=== PATIENT | female | born 1975 | race Caucasian/White ===

== ENCOUNTER 2020-03-04 14:39 | Outpatient (CLI) | payer OTHER, SELFPAY ==
--- NOTE | ~2020-03-04 | MM_ITS ---
EXAMINATION: MM scrn сергей implant BI w jaswinder HISTORY: Screening mammogram TECHNIQUE: Craniocaudal and mediolateral oblique 3-D tomosynthesis images with implant displacement a nd synthetic 2-D images were generated. Craniocaudal and mediolateral oblique views of the breasts wi thout implant displacement were obtained using full field digital mammography. CAD analysis was submi tted and interpreted. COMPARISON: Comparison to multiple prior studies sequentially, with oldest reviewed study dated 11/2014. BREAST PARENCHYMAL COMPOSITION: The breasts are heterogeneously dense, which may obscure small masses . FINDINGS: There is no evidence of suspicious mass, calcification, or architectural distortion to sugg est malignancy in either breast. There has been no suspicious interval change. IMPRESSION: 1. No mammographic evidence of malignancy. 2. Recommend routine screening mammography in one year. BI-RADS Category 1: Negative Reviewed, dictated and finalized at location A.
== END 2020-03-04 14:40 | disposition home or self-care (01) ==
PROVIDERS: PCP Student in an Organized Health Care Education/Training Program; Visit Provider Student in an Organized Health Care Education/Training Program
DX: Z12.31 Encounter for screening mammogram for malignant neoplasm of breast (principal)
CPT/HCPCS: 77063; 77067

== ENCOUNTER 2021-06-02 14:23 | Outpatient (CLI) | payer OTHER, SELFPAY ==
--- NOTE | ~2021-06-02 | MM_ITS ---
EXAMINATION: MM scrn сергей implant BI w jaswinder HISTORY: Screening mammogram TECHNIQUE: Craniocaudal and mediolateral oblique 3-D tomosynthesis images with implant displacement a nd synthetic 2-D images were generated. Craniocaudal and mediolateral oblique views of the breasts wi thout implant displacement were obtained using full field digital mammography. CAD analysis was submi tted and interpreted. COMPARISON: 03/04/2020, 12/15/2016, 07/22/2015 BREAST PARENCHYMAL COMPOSITION: There are scattered areas of fibroglandular density. FINDINGS: There is no evidence of suspicious mass, calcification, or architectural distortion to sugg est malignancy in either breast. There has been no suspicious interval change. IMPRESSION: 1. No mammographic evidence of malignancy. 2. Recommend routine screening mammography in one year. BI-RADS Category 1: Negative Reviewed, dictated and finalized at location A. [employer]
== END 2021-06-02 14:24 | disposition home or self-care (01) ==
LOC: ANHIMG 14:33
PROVIDERS: PCP Student in an Organized Health Care Education/Training Program; Visit Provider Student in an Organized Health Care Education/Training Program
DX: Z12.31 Encounter for screening mammogram for malignant neoplasm of breast (principal)
CPT/HCPCS: 77063; 77067

== ENCOUNTER 2022-10-12 14:50 | Outpatient (CLI) | payer OTHER, SELFPAY ==
--- NOTE | ~2022-10-12 | MM_ITS ---
EXAMINATION: MM scrn сергей implant BI w jaswinder HISTORY: Screening mammogram TECHNIQUE: Craniocaudal and mediolateral oblique 3-D tomosynthesis images with implant displacement a nd synthetic 2-D images were generated. Craniocaudal and mediolateral oblique views of the breasts wi thout implant displacement were obtained using full field digital mammography. CAD analysis was submi tted and interpreted. COMPARISON: 06/02/2021, 03/04/2020, 12/15/2016 BREAST PARENCHYMAL COMPOSITION: The breasts are heterogeneously dense, which may obscure small masses . FINDINGS: There is no evidence of suspicious mass, calcification, or architectural distortion to sugg est malignancy in either breast. There has been no suspicious interval change. IMPRESSION: 1. No mammographic evidence of malignancy. 2. Recommend routine screening mammography in one year. BI-RADS Category 1: Negative Reviewed, dictated and finalized at location A.
== END 2022-10-12 14:51 | disposition home or self-care (01) ==
LOC: ANHIMG 14:51
PROVIDERS: PCP Student in an Organized Health Care Education/Training Program; Visit Provider Student in an Organized Health Care Education/Training Program
DX: Z12.31 Encounter for screening mammogram for malignant neoplasm of breast (principal)
CPT/HCPCS: 77063; 77067

== ENCOUNTER 2024-01-03 13:52 | Outpatient (CLI) | payer OTHER, SELFPAY ==
--- NOTE | ~2024-01-03 | MM_ITS ---
EXAMINATION: MM scrn сергей implant BI w jaswinder HISTORY: Screening mammogram TECHNIQUE: Craniocaudal and mediolateral oblique 3-D tomosynthesis images with implant displacement a nd synthetic 2-D images were generated. Craniocaudal and mediolateral oblique views of the breasts wi thout implant displacement were obtained using full field digital mammography. CAD analysis was submi tted and interpreted. COMPARISON: Comparison to multiple prior studies sequentially, with oldest reviewed study dated 11/2014. BREAST PARENCHYMAL COMPOSITION: Dense: The breasts are heterogeneously dense, which may obscure small masses FINDINGS: There is no evidence of suspicious mass, calcification, or architectural distortion to sugg est malignancy in either breast. There has been no suspicious interval change. IMPRESSION: 1. No mammographic evidence of malignancy. 2. Recommend routine screening mammography in one year. BI-RADS Category 1: Negative Reviewed, dictated and finalized at location B.
== END 2024-01-03 13:53 | disposition home or self-care (01) ==
PROVIDERS: PCP Student in an Organized Health Care Education/Training Program; Visit Provider Nurse Practitioner
DX: Z12.31 Encounter for screening mammogram for malignant neoplasm of breast (principal)
CPT/HCPCS: 77063; 77067

== ENCOUNTER 2025-03-05 14:39 | Outpatient (CLI) | payer OTHER, SELFPAY ==
--- NOTE | ~2025-03-05 | MM_ITS ---
EXAMINATION: MM scrn сергей implant BI w jaswinder HISTORY: Screening TECHNIQUE: Craniocaudal and mediolateral oblique 3-D tomosynthesis images were obtained and synthetic 2-D images were generated. CAD analysis was submitted and interpreted. Implant displacement views were obtained. COMPARISON: 01/03/2024 BREAST PARENCHYMAL COMPOSITION: The breasts are heterogeneously dense, which may obscure small masses. FINDINGS: There is no evidence of suspicious mass, or architectural distortion to suggest malignancy. There has been no suspicious interval change. Bilateral breast implants. Indeterminate calcifications in the upper-outer quadrant of the left breast, middle depth. IMPRESSION: 1. Indeterminate calcifications in the upper-outer quadrant of the left breast, middle depth. The study is incomplete. A diagnostic mammogram and a diagnostic breast ultrasound are recommended. 2. No evidence of malignancy in the right breast. BI-RADS 0: Incomplete-Need additional imaging evaluation. Reviewed, dictated and finalized at location Q.
== END 2025-03-05 14:40 | disposition home or self-care (01) ==
LOC: ANHFOHIMG 14:47
PROVIDERS: PCP Student in an Organized Health Care Education/Training Program; Visit Provider Nurse Practitioner
DX: Z12.31 Encounter for screening mammogram for malignant neoplasm of breast (principal); R92.8 Other abnormal and inconclusive findings on diagnostic imaging of breast
CPT/HCPCS: 77063; 77067

== ENCOUNTER 2025-04-20 12:52 | Outpatient (CLI) | payer OTHER, SELFPAY ==
--- NOTE | ~2025-04-20 | MM_ITS ---
EXAMINATION: MM diagnostic сергей LT w jaswinder HISTORY: Additional imaging TECHNIQUE: Craniocaudal and mediolateral oblique 3-D tomosynthesis images were obtained and synthetic 2-D images were generated. CAD analysis was submitted and interpreted. COMPARISON: None available. BREAST PARENCHYMAL COMPOSITION: There are scattered areas of fibroglandular tissue. FINDINGS: No suspicious masses are seen. The group of heterogeneous calcifications in question spans a distance of approximately 7 mm and is located in the posterior depth of the breast tissue at approximately 2:00. No unexplained architectural distortion is seen. There are no skin or nipple abnormalities identified. There is no adenopathy seen on the images submitted. IMPRESSION: Indeterminate calcifications for which stereotactic/tomographic guided core biopsy is recommended. BI-RADS Code: 4 - Suspicious for malignancy. Tissue diagnosis is recommended. Reviewed, dictated and finalized at location B. ELAIN ENAMEL LABORER IMPRESSION: Indeterminate calcifications for which stereotactic/tomographic guided core bio psy is recommended. BI-RADS Code: 4 - Suspicious for malignancy. Tissue diagnosis is recommended.
--- OUTSIDE RECORDS SUMMARY | 2025-04-20 14:22 | XMS_ITS | Clinical Summary ---
Author Organization [facility] Address [facility] [place] [address] Care Team Providers Care Account Executive Agribusiness Name Role Phone Elieabbi Patrick Rui PEPPER Primary Care Provider + Allergies No known active allergies Medications nitroglycerin 0.4 MG SL tabletIndications :Spontaneous dissection of coronary artery Place 1 tablet under tongue as needed for chest pain, can repeat after 5 minutes as needed, max of 3 tablets 30 tablet 0 Active aspirin EC 81 MG tabletIndications :Spontaneous dissection of coronary artery Take 1 tablet (81 mg total) by mouth daily. 90 tablet 3 1 Active albuterol sulfate HFA (VENTOLIN HFA) 108 (90 Base) MCG/ACT inhalerIndication s:Wheezing Inhale 1-2 puffs into the lungs every 6 (six) hours as needed for Wheezing. 18 g 5 4 Active clobetasol (TEMOVATE) 0.05 % ointment APPLY EXTERNALLY TO HANDS TWICE DAILY NEEDED 5 Active bisoprolol (ZEBETA) 5 MG tabletIndications :Spontaneous dissection of coronary artery Take 1 tablet (5 mg total) by mouth daily. 90 tablet 3 5 Active amphetamine-dextr oamphetamine XR (ADDERALL XR) 20 MG 24 hr capsuleIndication s:Attention deficit hyperactivity disorder (ADHD), unspecified ADHD type Take 1 capsule (20 mg total) by mouth every morning. 30 capsule 5 Active sertraline (ZOLOFT) 50 MG tabletIndications :Current moderate episode of major depressive disorder without prior episode (CMS/HCC) Take 0.5 tab daily for 7 days, then take 1 tab daily 30 tablet 2 5 Active omeprazole (PRILOSEC) 40 MG capsuleIndication s:Gastroesophagea l reflux disease, unspecified whether esophagitis present Take 1 capsule (40 mg total) by mouth daily. 90 capsule 3 5 Active Active Problems Problem Noted Date Diagnosed Date Current moderate episode of major depressive disorder without prior episode 03/12/2025 Metabolic dysfunction-associ ated steatotic liver disease (MASLD) 12/04/2024 Gastroesophageal reflux dise ase, unspecified whether esophagitis present 09/04/2024 BMI 24.0-24.9, adult 03/18/2020 Chronic fatigue 06/05/2018 Overview (09/11/2019): Last Assessment & Plan: Trouble staying asleep, despite reasonable sleep hygiene, no depression symptoms, trials of melatonin and ambien. No sleep apnea symptoms. May have situation anxiety (child support issues) vs. primary anxiety disorder. Encouraged further follow up in primary care clinic. Spontaneous dissection of coronary artery 2018 Chest pain 04/27/2018 Overview (09/11/2019): Last Assessment & Plan: [place] significant PMH [place] [facility] [place] sudden onset substernal chest pressure that lasted for 30 minutes, resolved by the time she made it to OSH ED. EKG en route in ambulance concerning for FIDELIA in inferior leads. EKG changes resolved at OSH ED. Troponin I <0.012 at OSH. Transferred to CCU for further management. - CMP, CBC, CXR wnl - trend troponin: 0.05 --> <0.03 - EKG NSR - s/p ASA 324, Brilinta 180 at OSH - aspirin 81, atorva 80, heparin gtt - A1c 4.9% LDL 79 Insomnia 01/11/2017 Mammogram abnormal 05/13/2015 ADD (attention deficit disorder) 10/15/2014 Asthma, mild intermittent 10/15/2014 Resolved Problems Problem Noted Date Diagnosed Date Resolved Date Stye 04/13/2016 10/12/2022 Encounters Date Type Department Care Team Description 03/12/2025 10:20 AM CDT Office Visit [facility] Family & Internal Medicine [address] [phone] Patrick Ramirez, Attention Deficit Hyperactivity Disorder (Routine follow up. ); Depression (The patient unexpectedly lost her mom on 01/22/2025. The patient states she is not in a good head space. She has become reclusive. ) 03/12/2025 Travel 03/05/2025 Scan HEALTH INFO SRVCS Scanned, Doc [facility] Mammogram (SCAN) from Last 3 Months Immunizations Immunization Administration Dates Next Due PFIZER COVID-19 (ORIGINAL FO RMULATION, PURPLE CAP) mRNA, LNP-S, PF, 30 MCG/0.3 ML DOSE 03/09/2021 Tdap (Historical Only-select from magnify glass) 12/04/2019 Family History Medical History Relation Comments Cancer Brother Heart Disease Father Hypertension Father None Mother Relation Status Comments Brother Father Mother Social History Tobacco Use Types Packs/Day Years Used Date Smoking Tobacco: Never Passive Smoke Exposure: Never Smokeless Tobacco: Never Tobacco Cessation:Counseling Given: Yes Alcohol Use Standard Drinks/Week Comments Not Currently 0 (1 standard drink = 0.6 oz pur e alcohol) very rarely AUDIT-C Answer Date Recorded Frequency of Alcohol Consumption 2-4 times a sat09/11/2019 Average Number of Drinks 5 or 6 020 Frequency of Binge Drinking Less than monthly PHQ-2 Answer Date Recorded Patient Health Questionnaire-2 Score 6 03/12/2025 Comments No Sex and Gender Information Value Date Recorded Sex Assigned at Female 06/05/2024 10:36 AM PODIATRIC ASSISTANT Legal Sex Female 5:10 PM CDT Gender Identity Female 06/05/2024 10:36 AM PODIATRIC ASSISTANT Sexual Orientation Straight 09/11/2019 10 :40 AM CDT 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 on file Not on file Not o n file Last Filed Vital Signs Vital Sign Reading Time Taken Comments Blood Pressure 114/76 03/12/2025 10:33 AM CDT Pulse 79 03/12/2025 10:33 AM CDT Temperature 36.4 C (97.5 F) 03/12/2025 10:33 AM CDT Respiratory Rate 16 03/12/2025 10:33 AM CDT Oxygen Saturation 98% 03/12/2025 10:33 AM CDT Inhaled Oxygen Concentration - - Weight 85 kg (187 lb 8 oz) 03/12/2025 10:33 AM C DT Height 170.2 cm (5' 7) 03/12/2025 10:33 AM CDT Body Mass Index 29.37 03/12/2025 10:33 AM CDT Plan of Treatment Upcoming Encounters Date Type Department Care Team (Late st Contact Info) Description 05/07/2025 11:20 AM PODIATRIC ASSISTANT Office Visit [facility] Family & Internal Medicine - [address] [phone] Patrick Ramirez, [address] [place] [id number] Health Maintenance Due Date Last Done Comments Colorectal Cancer Screening Colonoscopy (10 Years) 1974 Hepatitis A Vaccines (1 of 2 - Risk 2-dose series) 1993 Annual Physical 09/10/2020 09/11/2019 Hepatitis B Vaccines (1 of 3 - 19+ 3-dose series) 09/04/2025 Postponed from 1993 (Patient/Guardian Refusal) Mammogram Screening 03/05/2026 03/05/2025, 03/05/2025, 01/03/2024, Additional history exists COVID-19 Vaccine ( season) 2026 03/30/2021, 03/09/2021 Postponed from 01/25/2025 (Patient Refused) Influenza Adult (#1) 2026 Postpon ed from 02/24/2025 (Patient Refused) Pneumococcal Vaccine: 50+ Years (1 of 2 - PCV) 03/12/2026 Postponed from 1993 (Patient Refused) Zoster Vaccines (1 of 2) 03/12/2026 Pos tponed from 2024 (Patient Refused) Cervical Cancer Screening Pap with HPV Testing (Age 30 to 64) Every 5 Years 08/11/2026 08/11/2021, 07/29/2020, 07/29/2020 Cervical Cancer Screening Pap Smear (Age 30 to 64) Every 3 Years 09/26/2027 09/25/2024, 08/30/2023, 08/17/2022, Additional history exists Cervical Cancer Screening with HPV 09/26/2027 DTaP, Tdap and Td Vaccines (2 - Td or Tdap) 12/03/2029 12/04/2019 Hepatitis C Completed 12/27/2023, 07/13/2022 PHQ-2 (Physician Jackson) Completed 03/12/2025 Meningococcal B Vaccine Aged Out No l onger eligible based on patient's age to complete this topic Meningococcal Vaccine Aged Out No wes rudy eligible based on patient's age to complete this topic RSV Immunizations Under 20 Months Aged Out No longer eligible based on patient's age to complete this topic Procedures Procedure Name Priority Date/Time Associated Diagnosis Comments MAMMOGRAM GENERIC (SCAN ORDER) 03/05/2025 MAMMOGRAM GENERIC (SCAN ORDER) 03/05/2025 HEPATITIS PANEL,ACUTE Routine 12/27/2023 10:38 AM CDT Elevated liver enzymes Highly echogenic liver on ultrasound OUTSIDE CYTOPATH CERV/VAG INTERPRET (PAP) 08/11/2021 from Last 3 Months or Most Recently Relevant to Health Maintenance Results * MAMMOGRAM GENERIC (SCAN ORDER) (03/05/2025) Only the most recent of2 resultswithin the time period is included. Anatomical Region Laterality Modality Other 03/05/2025 [facility] Scanned SCANNING Final Resu lt * HEPATITIS PANEL,ACUTE (12/27/2023 10:38 AM CDT) HEPATITIS B SURFACE AG NON-REACT ROSALINA NON-REACT ROSALINA 12/27/2023 7:44 PM CDT [facility] Comment:HBsAg NOT DETECTED. HEP B CORE IGM NON-REACT ROSALINA NON-REACT ROSALINA 12/27/2023 7:44 PM CDT [facility] Comment: IgM ANTI HBc NOT DETECTED. DOES NOT EXCLUDE THE POSSIBILITY OF EXPOSURE TO OR INFECTION WITH HBV. NO RETEST REQUIRED. HIGH DOSES OF BIOTIN MAY INTERFERE WITH THIS TEST RESULT. CORRELATION TO CLINICAL HISTORY AND PRESENTATION RECOMMENDED. HAV IGM NON-REACT ROSALINA NON-REACT ROSALINA 12/27/2023 7:44 PM CDT [facility] Comment: IgM ANTI HAV NOT DETECTED. DOES NOT EXCLUDE THE POSSIBILITY OF EXPOSURE TO OR INFECTION WITH HAV. LEVELS OF IgM ANTI HAV MAY BE BELOW THE CUTOFF IN EARLY INFECTION. HEPATITIS C AB NON-REACT ROSALINA NON-REACT ROSALINA 12/27/2023 7:44 PM CDT [facility] Comment: ANTIBODIES TO HCV NOT DETECTED. DOES NOT EXCLUDE THE POSSIBILITY OF EXPOSURE TO HCV. 12/27/2023 10:3 8 AM CDT Patrick Ramirez DO LABORATORY Final Re sult [facility] [address] [place] [address], [id number] * PAP SMEAR WITH HPV (08/11/2021) 08/11/2021 [facility] Scanned SCANNING Final Resu lt from Last 3 Months or Most Recently Relevant to Health Maintenance Insurance [place], [place] [id number] [place] [address] Care Teams Account Executive Agribusiness Relationship Specialty Start Date End Date Patrick Ramirez DO [address] [place] [id number] PCP - General FAMILY PRACTICE 09/11/19
--- OUTSIDE RECORDS SUMMARY | 2025-04-20 14:22 | XMS_ITS | Encounter Summary ---
Author Organization [facility] Address [address] [place] [id number] Care Team Providers Care Communications Equipment Supervisor Name Role Phone Patrick Ramirez DO Primary Care Provider + Encounter Details Date Type Department Care Team (Late st Contact Info) Description 10/16/2022 Liquid Lightt Message Enc [facility] Family & Internal Medicine [facility] [address] [place] [address] Patrick Ramirez DO [address] [place] [address] Mammogram Results Social History Tobacco Use Types Packs/Day Years Used Date Smoking Tobacco: Never Passive Smoke Exposure: Never Smokeless Tobacco: Never Alcohol Use Standard Drinks/Week Comments Not Currently 0 (1 standard drink = 0.6 oz pur e alcohol) very rarely AUDIT-C Answer Date Recorded Frequency of Alcohol Consumption 2-4 times a sat09/11/2019 Average Number of Drinks 5 or 6 020 Frequency of Binge Drinking Less than monthly PHQ-2 Answer Date Recorded Patient Health Questionnaire-2 Score 0 07/13/2022 Comments No Sex and Gender Information Value Date Recorded Sex Assigned at Female 06/05/2024 10:36 AM ROTARY CUTTER OPERATOR Legal Sex Female 5:10 PM CDT Gender Identity Female 06/05/2024 10:36 AM ROTARY CUTTER OPERATOR Sexual Orientation Straight 09/11/2019 10 :40 AM CDT 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 No / Unsure 10/12/2022 11:37 AM CDT documented as of this encounter Plan of Treatment Upcoming Encounters Date Type Department Care Team (Late st Contact Info) Description 05/07/2025 11:20 AM ROTARY CUTTER OPERATOR Office Visit [facility] Family & Internal Medicine - [address] [phone] Patrick Ramirez DO [facility] [place] [address] documented as of this encounter Visit Diagnoses Not on filedocumented in this encounter Additional Health Concerns Assessment Noted Time PHQ-9 Depression Total Score: 0 08/26/19 22 11:26 AM CDT documented as of this encounter Care Teams Communications Equipment Supervisor Relationship Specialty Start Date End Date Patrick Ramirez DO [address] [place] [id number] PCP - General FAMILY PRACTICE 09/11/19 documented as of this encounter
--- OUTSIDE RECORDS SUMMARY | 2025-04-20 14:22 | XMS_ITS | Encounter Summary ---
Author Organization [facility] Address [address] [place] [address] Care Team Providers Care Dry Kiln Loader Name Role Phone Patrick Ramirez Rui PEPPER Primary Care Provider + Encounter Details Date Type Department Care Team (Late Contact Info) Description 04/03/2024 [employer] Message [facility] Patient Accounts [address] [place] [address] [facility] Provider System Error - Payment on 03/29 Social History Tobacco Use Types Packs/Day Years [...] Answer Date Recorded Patient Health Questionnaire-2 Score 3 08/16/2023 Comments No Sex and Gender Information Value Date Recorded Sex Assigned at Female 06/05/2024 10:36 AM PROPERTY FIELD ADJUSTER Legal Sex Female 5:10 PM CDT Gender Identity Female 06/05/2024 10:36 AM PROPERTY FIELD ADJUSTER Sexual Orientation Straight 09/11/2019 10 :40 AM CDT 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 Not on file Not o n file documented as of this encounter Plan of Treatment Upcoming Encounters Date Type Department Care Team (Late Contact Info) Description 05/07/2025 11:20 AM PROPERTY FIELD ADJUSTER Office Visit [facility] Family & Internal Medicine - [place] [address] [place] [address] Patrick Ramirez DO [address] [place] [id number] documented as of this encounter Visit Diagnoses Not on filedocumented in this encounter Additional Health Concerns Assessment Noted Time PHQ-9 Depression Total Score: 13 024 10:31 AM CDT documented as of this encounter Care Teams Dry Kiln Loader Relationship Specialty Start Date End Date Patrick Ramirez DO [address] [place] [phone] PCP - General FAMILY PRACTICE 09/11/19 documented as of this encounter
--- OUTSIDE RECORDS SUMMARY | 2025-04-20 14:22 | XMS_ITS | Clinical Summary ---
Author Organization [facility] Address [address] [place] [address] Care Team Providers Care Oil Burner Name Role Phone Patrick Ramirez DO Primary Care Provider + Source Comments [facility],non-owned Affiliates and Associated Physician Practices is amultiple site organization consisting of ambulatory clinics and hospital sitesin [place], [place], [place] and [place]. This disclosure is being madepursuant to the Care Everywhere program and may not contain all information available regarding this patient. Last updated 18.[facility] Allergies No known active allergies Medications * Be aware that medications may not be up to date on this document. Alwaysverify current medications with the patient. Aspirin (ASPIR-81 PO) Take 1 tablet by mouth once daily Active albuterol HFA (Proventil; Ventolin; Proair) 108 (90 Base) MCG/ACT inhaler Inhale 2 (two) puffs by mouth as needed for Shortness of Breath or Wheezing 4 Active amphetamine-dex troamphetamine XR 24hr (Adderall XR) 20 MG capsule Take 1 (one) capsule by mouth every morning 5 Active bisoprolol (Zebeta) 5 MG tablet Take 1 (one) tablet by mouth once daily 3 Active omeprazole (PriLOSEC) 40 MG capsule Take 1 (one) capsule by mouth once daily 5 Active nitroGLYCERIN (Nitrostat) 0.4 MG tablet Dissolve 1 (one) tablet under the tongue every 5 minutes as needed for Angina Active Active Problems Problem Noted Date Diagnosed Date Metabolic dysfunction-associ ated steatotic liver disease (MASLD) 12/04/2024 Gastroesophageal reflux disease 09/04/2024 Acute vaginitis 11/07/2018 Overview (06/18/2024): Acute vaginitis;Practice ID: 0001 Chronic fatigue 06/05/2018 Overview (06/18/2024): Last Assessment & Plan: Trouble staying asleep, despite reasonable sleep hygiene, no depression symptoms, trials of melatonin and ambien. No sleep apnea symptoms. May have situation anxiety (child support issues) vs. primary anxiety disorder. Encouraged further follow up in primary care clinic. Spontaneous dissection of coronary artery 2018 Chest pain 04/27/2018 Overview (06/18/2024): Last Assessment & Plan: Patient without significant PMH in [facility] with sudden onset substernal chest pressure that [...] deficit disorder) 10/15/2014 Asthma, mild intermittent 10/15/2014 Family History Medical History Relation Name Comments CAD (Coronary Artery Disease) Father CABG x3 Hypertension Father Asthma Neg Hx Autoimmune Disease Neg Hx Bipolar Disorder Neg Hx Cancer - Breast Neg Hx Cancer - Colon Neg Hx Cancer - Other Neg Hx Cancer - Ovarian Neg Hx Cancer - Pancreatic Neg Hx Cancer - Prostate Neg Hx Depression Neg Hx Eczema Neg Hx Migraine Neg Hx Osteoporosis Neg Hx Seizures Neg Hx Sudd. <30 Neg Hx Thyroid Disease Neg Hx Ulcerative Colitis Neg Hx Relation Name Status Comments Father Mother Alive Social History Tobacco Use Types Packs/Day Years Used Date Smoking Tobacco: Never Smokeless Tobacco: Never Tobacco Cessation:Counseling Given: No Alcohol Use Standard Drinks/Week Comments No 0 (1 standard drink = 0.6 oz pur e alcohol) Comments No Sex and Gender Information Value Date Recorded Sex Assigned at Not on file Legal Sex Female 7:02 PM OFFSET PRESS OPERATOR APPRENTICE Gender Identity Not on file Sexual Orientation Not on file Last Filed Vital Signs Vital Sign Reading Time Taken Comments Blood Pressure 119/70 12/10/2024 2:27 PM CDT Pulse 90 12/10/2024 2:27 PM CDT Temperature 36.6 C (97.8 F) 12/10/2024 2:26 PM CDT Respiratory Rate 16 05/22/2018 9:14 AM OFFSET PRESS OPERATOR APPRENTICE Oxygen Saturation 97% 12/10/2024 2:26 PM CDT Inhaled Oxygen Concentration - - Weight 87.7 kg (193 lb 6.4 oz) 12/10/2024 2:26 P M CDT Height 170.2 cm (5' 7) 12/10/2024 2:26 PM CDT Body Mass Index 30.29 12/10/2024 2:26 PM CDT Plan of Treatment Upcoming Encounters Date Type Department Care Team (Late st Contact Info) Description 12/16/2025 2:00 PM CDT Office Visit [facility] [place] [address] [place] [phone] Rain López MD [address] [place] [address] [address] MD DOOR [address] [place] [phone] 12/16/2025 2:00 PM CDT Procedure visit [facility] - [address] [phone] 12/16/2025 2:30 PM CDT Office Visit [facility] - [place] [address] [place] [phone] Vic Price III, MD [address] [place] [address] [address] [place] [address] Health Maintenance Due Date Last Done Comments COLOGUARD (AGES 45-75) - COLON CA SCREENING 1974 COLON MONITORING 1974 COLONOSCOPY - COLON CA SCREENING 1974 CT COLONOGRAPHY - COLON CA SCREENING 1974 Colorectal Cancer Screening 1974 FIT - COLON CA SCREENING 1974 FLEX SIG - COLON CA SCREENING 1974 HIV SCREENING 1989 HEPATITIS C SCREENING 11/26/1992 DTAP/TDAP/TD VACCINES (1 - Tdap) 1993 HEPATITIS B VACCINE (1 of 3 - 19+ 3-dose series) 1993 PNEUMOCOCCAL VACCINE 50+ (1 of 2 - PCV) 1993 PAP with HPV 2004 DEPRESSION SCREENING 05/27/2024 ZOSTER VACCINE (1 of 2) 2024 COVID-19 VACCINE (2 - 2024- season) 2025 03/09/2021 INFLUENZA VACCINE (#1) 2025 MAMMOGRAM 01/02/2026 01/03/2024, 09/24, 06/02/2021, Additional history exists SCREENING FOR DIABETES 06/18/2027 06/18/2024 Cervical Cancer Screening 09/26/2027 PAP SMEAR 09/26/2027 09/25/2024, 050 06/2024, 08/30/2023, Additional history exists LIPID TESTING 06/18/2029 06/18/2024 HIB VACCINE Aged Out No longer eligi ble based on patient's age to complete this topic HPV VACCINE Aged Out No longer eligi ble based on patient's age to complete this topic MENINGOCOCCAL (Group B) VACCINE SHARED DECISION-MAKING Aged Out No longer eligible based on patient's age to complete this topic MENINGOCOCCAL GROUPS A/C/Y/W VACCINE Aged Out No longer eligible based on patient's age to complete this topic Goals Goal Patient Goal Type Associated Problems Recent Progress Patient-Stated? Author Medication Management General On track( 025 2:14 PM CDT) Kindra Gray, RN Note: Expected end date: Ongoing Interventions: Take all medications as prescribed Let your doctor know right away about any changes in your medications Make sure to request a refill of your medication at least one week prior to your last dose Procedures Procedure Name Priority Date/Time Associated Diagnosis Comments COMPREHENSIVE METABOLIC PANEL Routine 06/18/2024 4:42 PM OFFSET PRESS OPERATOR APPRENTICE Elevated liver enzymes LIPID PROFILE Routine 06/18/2024 4:42 PM [facility] Elevated liver enzymes from Last 3 Months or Most Recently Relevant to Health Maintenance Results * (ABNORMAL) COMPREHENSIVE METABOLIC PANEL (06/18/2024 4:42 PM [facility]) BUN 12 7 - 26 mg/dL 06/18/2024 5:40 PM [facility] Creatinine 0.55(L) 0.56 - 0.96 mg/dL 06/18/2024 5:40 PM [facility] Sodium 141 136 - 145 mmol/L 06/18/2024 5:40 PM [facility] Potassium 3.9 3.5 - 4.5 mmol/L 06/18/2024 5:40 PM [facility] Chloride 106 98 - 107 mmol/L 06/18/2024 5:40 PM [facility] CO2 27 22 - 29 mmol/L 06/18/2024 5:40 PM [facility] Glucose 90 70 - 99 mg/dL 06/18/2024 5:40 PM [facility] Calcium 9.2 8.4 - 10.2 mg/dL 06/18/2024 5:40 PM [facility] Protein Total 7.0 6.0 - 8.3 g/dL 06/18/2024 5:40 PM [facility] Albumin 4.0 3.4 - 5.0 g/dL 06/18/2024 5:40 PM [facility] Bilirubin Total 0.4 0.2 - 1.2 mg/dL 06/18/2024 5:40 PM [facility] Alkaline Phosphatase 56 40 - 150 U/L 06/18/2024 5:40 PM [facility] ALT 25 5 - 55 U/L 06/18/2024 5:40 PM [facility] AST 19 5 - 34 U/L 06/18/2024 5:40 PM [facility] Anion Gap 8 6 - 16 06/18/2024 5:40 PM [facility] BUN/Creatinine Ratio 22 7 - 23 06/18/2024 5:40 PM [facility] Osmolality Calculated 291 275 - 295 mOsm/kg 06/18/2024 5:40 PM [facility] Albumin/Globulin Ratio 1.3 1.1 - 2.3 06/18/2024 5:40 PM [facility] eGFR by CKD-EPI >90 >=90 mL/min/1.7 3 m2 06/18/2024 5:40 PM [facility] Blood BLOOD SPECIMEN / Unknown Lab Venipuncture / Unknown 06/18/2024 4:42 PM OFFSET PRESS OPERATOR APPRENTICE 06/18/2024 5:14 PM OFFSET PRESS OPERATOR APPRENTICE us Rain López MD LAB - CHEMISTRY ORDERABLES Final Result [address] [address], [facility] [phone] * (ABNORMAL) LIPID PROFILE (06/18/2024 4:42 PM OFFSET PRESS OPERATOR APPRENTICE) Cholesterol Total 176 <200 mg/dL 06/18/2024 5:40 PM [facility] HDL 50 >40 mg/dL 06/18/2024 5:40 PM [facility] Comment: ATP III Classification of HDL Cholesterol: <40 mg/dL: Considered a major risk factor. >60 mg/dL: Considered a negative risk factor. LDL Calculated 108(H) <100 mg/dL 06/18/2024 5:40 PM [facility] Comment: ATP III Classification of LDL Cholesterol: <100 mg/dL: Optimal 100 - 129 mg/dL: Near Optimal/Above Optimal 130 - 159 mg/dL: Borderline High 160 - 189 mg/dL: High >190 mg/dL: Very High Triglycerides 90 <150 mg/dL 06/18/2024 5:40 PM [facility] Comment: ATP III Classification of Triglycerides: <150 mg/dL: Normal 150 - 199 mg/dL: Borderline High 200 - 400 mg/dL: High >500 mg/dL: Very High Blood BLOOD SPECIMEN / Unknown Lab Venipuncture / Unknown 06/18/2024 4:42 PM OFFSET PRESS OPERATOR APPRENTICE 06/18/2024 5:14 PM OFFSET PRESS OPERATOR APPRENTICE us Rain López MD LAB - CHEMISTRY ORDERABLES Final Result [facility] [address] [place] [address], [place] [phone] from Last 3 Months or Most Recently Relevant to Health Maintenance Insurance [facility] Care Teams Oil Burner Relationship Specialty Start Date End Date Patrick Ramirez DO [address] [place] [id number] PCP - General Family Medicine Geriatric Medicine 06/18/24
--- OUTSIDE RECORDS SUMMARY | 2025-04-20 14:22 | XMS_ITS | Patient Health Record ---
Author Organization [facility] Address [address] [place], [place] [id number] Care Team Providers Care Internet Merchant Name Role Phone DA HANDY Unavailable [phone] Patrick Ramirez Unavailable Unavailable Reason For Referral No Information Medications Medication SIG (Take, Route, Frequency, Duration) Notes Start Date End Date Status amphetamine aspartate 5 MG / amphetamine sulfate 5 MG / dextroamphetamine saccharate 5 MG / dextroamphetamine sulfate 5 MG Oral Tablet [Adderall] ORAL amphetamine aspartate 5 MG / amphetamine sulfate 5 MG / dextroamphetamine saccharate 5 MG / dextroamphetamine sulfate 5 MG Oral Tablet [Adderall]Original Medicationamphetamine aspartate 5 MG / amphetamine sulfa 11/11/19 22 Active Aspirin 81 MG Oral Capsule ORAL aspirin 81 MG Oral CapsuleOriginal Medicationaspirin 81 MG Oral Capsule *Reorder from [employer] for eRx and Interaction Alerts* 11/11/19 22 Active Nitroglycerin 0.3 MG Tablet Sublingual Sublingual nitroglycerin 0.3 MG Sublingual TabletOriginal Medicationnitroglycerin 0.3 MG Sublingual Tablet 11/11/19 22 Active bisoprolol fumarate 5 MG / hydrochlorothiazide 6.25 MG Oral Tablet ORAL bisoprolol fumarate 5 MG / hydrochlorothiazide 6.25 MG Oral TabletOriginal Medicationbisoprolol fumarate 5 MG / hydrochlorothiazide 6.25 MG Oral Tablet *Reorder from [employer] for eRx and Interaction Alerts* 11/11/19 22 Active Social History Social History Additional Details Category Social Info Options Details Migrated Social History Migrated Social History Smoking Status : Never used tobacco , History of tobacco use : Plan Of Treatment No Information Insurance Providers Payer Name Payer Address Payer Phone Subscriber Number Group Number Insured Name Patient Relationship to Insured Coverage Start Date Coverage End Date [facility] [address] [address] [place] [address] [id number] KELSIE STEVENS Self - patient is the insured
--- OUTSIDE RECORDS SUMMARY | 2025-04-20 14:22 | XMS_ITS | Encounter Summary ---
Author Organization [facility] Address [address] [place] [address] Care Team Providers Care Control Electrician Name Role Phone EliebernardaPatrick cam Rui PEPPER Primary Care Provider + Encounter Details Date Type Department Care Team (Late st Contact Info) Description 11/21/2022 [employer] Message Enc [facility] [address] [place], [place] [phone] [facility] Provider Air Quality Message Social History Tobacco Use Types Packs/Day Years Used Date Smoking Tobacco: Never Passive Smoke Exposure: Never Smokeless Tobacco: Never Alcohol Use Standard Drinks/Week Comments Not Currently 0 (1 standard drink = 0.6 oz pur e alcohol) very rarely AUDIT-C Answer Date Recorded Frequency of Alcohol Consumption 2-4 times a mon 09/11/2019 Average Number of Drinks 5 or 6 020 Frequency of Binge Drinking Less than monthly PHQ-2 Answer Date Recorded Patient Health Questionnaire-2 Score 0 07/13/2022 Comments No Sex and Gender Information Value Date Recorded Sex Assigned at Female 06/05/2024 10:36 AM ABRASIVE GRADER HELPER Legal Sex Female 5:10 PM CDT Gender Identity Female 06/05/2024 10:36 AM ABRASIVE GRADER HELPER Sexual Orientation Straight 09/11/2019 10 :40 AM CDT 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 Not on file Not o n file documented as of this encounter Plan of Treatment Upcoming Encounters Date Type Department Care Team (Late st Contact Info) Description 05/07/2025 11:20 AM ABRASIVE GRADER HELPER Office Visit [facility] Family [facility] - [place] [address] [place] [phone] Patrick Ramirez DO [address] [place] [address] documented as of this encounter Visit Diagnoses Not on filedocumented in this encounter Additional Health Concerns Assessment Noted Time PHQ-9 Depression Total Score: 0 08/26/19 22 11:26 AM CDT documented as of this encounter Care Teams Control Electrician Relationship Specialty Start Date End Date Patrick Ramirez DO [facility] [place] [place] [address] PCP - General FAMILY PRACTICE 09/11/19 documented as of this encounter
--- OUTSIDE RECORDS SUMMARY | 2025-04-20 14:22 | XMS_ITS | Clinical Summary ---
Author Organization [facility] Address [address] [place] [phone] Care Team Providers Care Pulping Machine Operator Name Role Phone Unavailable Primary Care Provider Unavailabl e Social History Tobacco Use Types Packs/Day Years Used Date Smoking Tobacco: Never Assessed Comments Unknown Sex and Gender Information Value Date Recorded Sex Assigned at Not on file Legal Sex Female 2:14 PM SPORTS PSYCHOLOGIST Gender Identity Not on file Sexual Orientation Not on file Plan of Treatment Health Maintenance Due Date Last Done Comments Hepatitis C Virus (HCV) Screening 1974 Hepatitis B Immunization (1 of 3 - 19+ 3-dose series) 1993 Pap Smear 12/02/1995 Cervical Cancer Screening (CCS) 2004 HPV/Cotest 2004 Cologuard 12/02/2019 Colonoscopy 12/02/2019 Colorectal Cancer Screening 12/02/2019 Immunochemical Fecal Occult Blood 12/02/2019 Pneumococcal Immunization (5 0+ years) (1 of 1 - PCV) 2024 Zoster Immunization (1 of 2) 2024 Influenza Immunization (#1) 2025 SARS-COV-2 Immunization ( - season) 2025 Respiratory Syncytial Virus (RSV) Immunization (Adult) (1 - 1-dose 75+ series) 2049 DTaP/Tdap/Td Immunization Discontinued 12/04/2019 TdaP Immunization Completed 12/04/2019 Human Papillomavirus (HPV) Immunization Aged Out No longer eligible b ased on patient's age to complete this topic Meningococcal Immunization (ACWY) Aged Out No longer eligible based on patient's age to complete this topic Rotavirus Immunization Aged Out No lo nger eligible based on patient's age to complete this topic
--- OUTSIDE RECORDS SUMMARY | 2025-04-20 14:22 | XMS_ITS | Clinical Summary ---
Author Organization [facility] Address [address] [place] [phone] Phone Care Team Providers Care Mixing Place Supervisor Name Role Phone CalabreseDickjay Primary Care Provider Allergies No known active allergies Family History Medical History Relation Name Comments Heart Disease Father Relation Name Status Comments Father Social History Tobacco Use Types Packs/Day Years Used Date Smoking Tobacco: Never Smokeless Tobacco: Never Alcohol Use Standard Drinks/Week Comments Yes 0 (1 standard drink = 0.6 oz pur e alcohol) social Comments Unknown Sex and Gender Information Value Date Recorded Sex Assigned at Not on file Legal Sex Female 3:41 PM MAORI PHYSIOTHERAPIST Gender Identity Not on file Sexual Orientation Not on file Plan of Treatment Health Maintenance Due Date Last Done Comments DTAP/TDAP/TD VACCINES (1 - Tdap) 1993 HEPATITIS B VACCINES (1 of 3 - 19+ 3-dose series) 12/1993 HPV/Cotest (21-29) 12/02/1995 CERVICAL CANCER SCREENING 2004 HPV/Cotest (30-65) 2004 PAP SMEAR 2004 BREAST CANCER SCREENING 2014 COLORECTAL SCREENING 12/02/2019 Colorectal Cancer Screening 12/02/2019 FIT-DNA Q 3 years 12/02/2019 FIT/FOBT Q 1 year 12/02/2019 Flex Sig/CT Colonography Q 5 years 12/02/2019 ZOSTER VACCINE (1 of 2) 2024 INFLUENZA VACCINE (#1) 2024 Insurance [facility] CHOICE [id number] Supervisor Relationship Specialty Start Date End Date Dick Calabrese DO [address] [place] [phone] PCP - General Family Practice 07/10/18
== END 2025-04-20 12:53 | disposition home or self-care (01) ==
LOC: ANHFOHIMG 12:53
PROVIDERS: PCP Student in an Organized Health Care Education/Training Program; Visit Provider Nurse Practitioner
DX: R92.8 Other abnormal and inconclusive findings on diagnostic imaging of breast (principal)
CPT/HCPCS: 77061; 77065; G0279